=== PATIENT | male | born 1940 | race Caucasian/White ===

== ENCOUNTER 2016-12-19 06:43 | Day surgery (SDC) | payer OTHER ==
[~2016-12-19] VITALS: Ht 177.8 cm; Wt 74.8 kg
[~2016-12-19 06:43] MED LIST: ATO40T PO; GABA-497 PO; INSUINJ37 SUBCUT; LISI2.5T47 PO; METO25TA5 PO; PRA1C PO
[2016-12-19] MEDS ORDERED: MIDAZOLAM HCL 1MG/1ML-2 ML VIAL ONE (07:25)
[2016-12-19] MEDS ORDERED: fentaNYL CITRATE 100 MCG/2 ML VL ONE (07:26)
[2016-12-19] MEDS ORDERED: SODIUM CHL 0.9% 50 ML ONE (07:26)
[2016-12-19] MEDS ORDERED: ANGIOMAX 250 MG VIAL IV ONE (07:26)
[2016-12-19] MEDS ORDERED: HEPARIN IN NS 1000Units/500mL 1,500 ML ONE (07:33)
[2016-12-19] MEDS ORDERED: IODIXANOL 320MG/ML 100ML BTL IV ONE (07:33)
[2016-12-19] MEDS ORDERED: LIDOCAINE 2%HCL (LOCAL ANESTH.) INJ 20ML MDV ONE (07:33)
== END 2016-12-19 14:30 | disposition home or self-care (01) ==
LOC: CATH 06:43
PROVIDERS: ATTEND Internal Medicine
DX: I73.9 Peripheral vascular disease, unspecified (principal)
CPT/HCPCS: 37224; 82962; C1760; C1769; C1894; J0583; J1644; J2250; J3010; J7030; Q9967

== ENCOUNTER 2017-10-17 06:37 | Day surgery (SDC) | payer OTHER ==
[~2017-10-17] VITALS: Ht 177.8 cm; Wt 76.3 kg
[~2017-10-17 06:37] MED LIST changes: -ATO40T PO; +ATOR10TA PO; -GABA-497 PO; +GABA300C10 PO; -LISI2.5T47 PO; +ZOLP10TA6 PO
[2017-10-17] MEDS ORDERED: LIDOCAINE 2%HCL (LOCAL ANESTH.) INJ 20ML MDV ONE (07:21)
[2017-10-17] MEDS ORDERED: IOHEXOL 350 MG/ML 100ML IJ ONE (07:21)
[2017-10-17] MEDS ORDERED: IODIXANOL 320MG/ML 100ML BTL IV ONE (08:02)
[2017-10-17] MEDS ORDERED: SODIUM CHL 0.9% 0 ML ONE (08:09)
[2017-10-17] MEDS ORDERED: ANGIOMAX 250 MG VIAL IV ONE (08:09)
[2017-10-17] MEDS ORDERED: MIDAZOLAM HCL 1MG/1ML-2 ML VIAL ONE (08:09)
[2017-10-17] MEDS ORDERED: fentaNYL CITRATE 100 MCG/2 ML VL ONE (08:09)
[2017-10-17] MEDS ORDERED: VERAPAMIL 2.5MG/ML INJ 2ML VIAL IV ONE (08:11)
[2017-10-17] MEDS ORDERED: SODIUM CHL 0.9% 50 ML ONE (08:11)
[2017-10-17] MEDS ORDERED: HEPARIN SODIUM (PORCINE) 5000 UNITS/ML 1ML VIAL ONE (08:54)
[2017-11-20] MEDS ORDERED: ASPI81TA27 PO (11:37)
== END 2017-10-17 10:50 | disposition home or self-care (01) ==
LOC: CATH 06:37
PROVIDERS: ATTEND Internal Medicine
DX: I25.110 Atherosclerotic heart disease of native coronary artery with unstable angina pectoris (principal); I99.8 Other disorder of circulatory system; E66.9 Obesity, unspecified; I10 Essential (primary) hypertension; E78.5 Hyperlipidemia, unspecified; E11.9 Type 2 diabetes mellitus without complications; I73.9 Peripheral vascular disease, unspecified; Z79.899 Other long term (current) drug therapy; Z87.891 Personal history of nicotine dependence; Z79.4 Long term (current) use of insulin
CPT/HCPCS: 93005; 93458; C1769; C1894; J1644; J2250; J3010; J7030; Q9967; 99152

== ENCOUNTER 2017-11-22 06:43 | Inpatient (IN) | payer OTHER ==
[2017-11-21] MEDS: InsuLIN REG 1unit/0.01ml Soln (100units/ml) SC SCH (06:01)
[~2017-11-22] VITALS: Ht 177.8 cm; Wt 84.2 kg
[~2017-11-22 06:43] MED LIST changes: +ASPI81TA27 PO
[2017-11-22] MEDS ORDERED: IODIXANOL 320MG/ML 100ML BTL IV ONE ×2 (07:16→08:05)
[2017-11-22] MEDS ORDERED: LIDOCAINE 2% (LOCAL ANESTH.) PF 5ml SDV ONE (07:16)
[2017-11-22] MEDS ORDERED: fentaNYL CITRATE 100 MCG/2 ML VL ONE (08:03)
[2017-11-22] MEDS ORDERED: ANGIOMAX 250 MG VIAL IV ONE (08:03)
[2017-11-22] MEDS ORDERED: MIDAZOLAM HCL 1MG/1ML-2 ML VIAL ONE (08:04)
[2017-11-22] MEDS ORDERED: SODIUM CHL 0.9% 50 ML ONE ×2 (08:05→08:07)
[2017-11-22] MEDS ORDERED: VERAPAMIL 2.5MG/ML INJ 2ML VIAL IV ONE (08:58)
[2017-11-22] MEDS ORDERED: CLOPIDOGREL 300 MG TAB ONE (09:24)
[2017-11-22] MEDS ORDERED: SODIUM CHLORIDE 0.9% 1,000 ML IV SCH (10:19)
[2017-11-22] MEDS ORDERED: ACETAMINOPHEN 500 MG TAB PO PRN (10:30)
[2017-11-22] MEDS ORDERED: MORPHINE SULFATE 8mg/ml INJ SDV IV PRN (10:30)
[2017-11-22] MEDS ORDERED: HYDROcodone-ACET 5/325MG TAB PO PRN (10:30)
[2017-11-22] MEDS ORDERED: ONDANSETRON HCL 4 MG/2 ML VIAL IV PRN (10:30)
[2017-11-22] MEDS ORDERED: LORazepam 0.5 MG TAB PO PRN (10:30)
[2017-11-22] MEDS ORDERED: MILK OF MAGNESIA 30ML SUSP PO ONE (10:30)
[2017-11-22] MEDS ORDERED: ZOLPIDEM TARTRATE 5 MG TAB PO PRN ×3 (10:30→22:00)
[2017-11-22] MEDS ORDERED: DEXTROSE (50%) 50ML SYRG IV PRN (15:00)
[2017-11-22 15:30] VITALS: BP 119/49
[2017-11-22] MEDS ORDERED: LISI2.5T47 PO (16:27)
[2017-11-22] MEDS: ACCU-CHEK COMFORT CURVE STRIP VI SCH ×2 (16:49→22:02)
[2017-11-22] MEDS: InsuLIN REG 1unit/0.01ml Soln (100units/ml) SC SCH ×2 (16:50→22:00)
[2017-11-22 17:00] VITALS: BP 119/49
[2017-11-22 22:00] VITALS: BP 113/51
[2017-11-22] MEDS ORDERED: ATORVASTATIN 20 MG TAB PO SCH (22:00)
[2017-11-22] MEDS: METOPROLOL TARTRATE 25 MG TAB PO SCH (22:00)
[2017-11-23 05:11] VITALS: BP 102/49
[2017-11-23] MEDS: ACCU-CHEK COMFORT CURVE STRIP VI SCH (06:01)
[2017-11-23] MEDS ORDERED: INSULIN LANTUS (GLARGINE) 1 /0.01ml (100units/ml) SC SCH (07:00)
[2017-11-23 08:42] VITALS: BP 119/49
[2017-11-23] MEDS: METOPROLOL TARTRATE 25 MG TAB PO SCH (09:49)
[2017-11-23] MEDS ORDERED: PRAZOSIN HCL 1 MG CAP PO SCH (10:00)
[2017-11-23] MEDS ORDERED: GABAPENTIN 300 MG CAP PO SCH (10:00)
== END 2017-11-23 15:52 | disposition home or self-care (01) | DRG 272 ==
LOC: CATH 06:43 → TELE-CENTR 06:44 → CENTRAL 17:42
PROVIDERS: ADMIT Internal Medicine; ATTEND Internal Medicine
PROC: B41D1ZZ Fluoroscopy of Aorta and Bilateral Lower Extremity Arteries using Low Osmolar Contrast (ICD-10-PCS; principal; 2017-11-22)
PROC: 04CJ3ZZ Extirpation of Matter from Left External Iliac Artery, Percutaneous Approach (ICD-10-PCS; 2017-11-22)
PROC: 047J3DZ Dilation of Left External Iliac Artery with Intraluminal Device, Percutaneous Approach (ICD-10-PCS; 2017-11-22)
PROC: B44GZZ3 Ultrasonography of Left Lower Extremity Arteries, Intravascular (ICD-10-PCS; 2017-11-22)
DX: I70.202 Unspecified atherosclerosis of native arteries of extremities, left leg (principal); I10 Essential (primary) hypertension; E11.9 Type 2 diabetes mellitus without complications; E11.42 Type 2 diabetes mellitus with diabetic polyneuropathy; E11.51 Type 2 diabetes mellitus with diabetic peripheral angiopathy without gangrene; E78.00 Pure hypercholesterolemia, unspecified; E78.5 Hyperlipidemia, unspecified; I11.9 Hypertensive heart disease without heart failure; Z79.4 Long term (current) use of insulin; Z82.49 Family history of ischemic heart disease and other diseases of the circulatory system; Z79.899 Other long term (current) drug therapy; Z95.820 Peripheral vascular angioplasty status with implants and grafts
CPT/HCPCS: 0238T; 37221; 75716; 82962; 99152; 99153; J1815; J2250; Q9967

== ENCOUNTER → 2018-01-22 | Day surgery (SDC) | payer OTHER ==
[~2018-01-22] VITALS: Ht 177.8 cm; Wt 73.4 kg
[~2018-01-22] MED LIST changes: +CLOP75TA28 PO; +LISI2.5T47 PO; +PANT40TA2 PO
== END | disposition home or self-care (01) ==
LOC: CATH 06:54
PROVIDERS: ATTEND Internal Medicine
DX: I73.9 Peripheral vascular disease, unspecified (principal); Z53.8 Procedure and treatment not carried out for other reasons; E78.5 Hyperlipidemia, unspecified; I35.0 Nonrheumatic aortic (valve) stenosis; I10 Essential (primary) hypertension; I25.119 Atherosclerotic heart disease of native coronary artery with unspecified angina pectoris; Z82.49 Family history of ischemic heart disease and other diseases of the circulatory system; Z83.6 Family history of other diseases of the respiratory system; Z79.82 Long term (current) use of aspirin; Z79.891 Long term (current) use of opiate analgesic; Z79.899 Other long term (current) drug therapy; Z90.49 Acquired absence of other specified parts of digestive tract; Z87.891 Personal history of nicotine dependence

== ENCOUNTER 2018-01-28 03:13 | Inpatient (IN) | payer OTHER ==
[~2018-01-28] VITALS: Ht 177.8 cm; Wt 74.3 kg
[2018-01-28] VITALS (9 sets, daily range): BP systolic 108–139; BP diastolic 50–76
[~2018-01-28 03:13] MED LIST changes: -PANT40TA2 PO
[2018-01-28 04:17] LABS: Basophils # (auto) 0 uL; Basophils % (auto) 0.4 % (0.0-2.0); Eosinophils # (auto) 0.2 uL; Eosinophils % (auto) 2.7 % (0.0-7.0); Hematocrit 25.3 % (41.0-53.0); Hemoglobin 8.7 g/dL (13.5-17.5); Lymphocytes # (auto) 0.8 uL; Lymphocytes % (auto) 10.4 % (10.0-50.0); Mean Corpuscular Hemoglobin 33.6 pg (28.0-32.0); Mean Corpuscular Hgb Conc. 34.4 g/dL (32.0-36.0); Mean Corpuscular Volume 97.6 fL (80.0-100.0); Monocytes # (auto) 0.5 uL; Monocytes % (auto) 5.8 % (0.0-12.0); Neutrophils # (auto) 6.3 uL; Neutrophils % (auto) 80.7 % (37.0-80.0); Platelet Count (auto) 144 10^3/uL (140-450); Red Blood Cells 2.59 10^6/uL (4.5-5.90); Red Cell Distribution Width 13.3 % (11.8-14.3); White Blood Cell 7.9 10^3/uL (4.4-10.8)
[2018-01-28 04:28] LABS: Alanine Aminotransferase 18 U/L (16-61); Albumin 2.9 g/dL (3.4-5.0); Anion Gap 9 (5-15); Aspartate Aminotransferase 8 U/L (15-37); Blood Urea Nitrogen 52 mg/dL (7-18); Calcium 7.8 mg/dL (8.5-10.1); Carbon Dioxide 23 mmol/L (21-32); Chloride 112 mmol/L (98-107); GFR African American 81 mL/min; GFR Non-African American 67 mL/min; Glucose 198 mg/dL (74-106); Potassium 4.5 mmol/L (3.5-5.1); Sodium 144 mmol/L (136-145)
[2018-01-28 04:31] LABS: INR 1.04 (0.9-1.15); Partial Thromboplastin Time 23.3 sec (23.78-33.04); Prothrombin Time 11.1 sec (9.27-12.13)
[2018-01-28 04:36] LABS: Alkaline Phosphatase 56 U/L (45-117); Bilirubin, Total 0.3 mg/dL (0.2-1.0); Total Protein 5.5 g/dL (6.4-8.2)
[2018-01-28] MEDS ORDERED: SODIUM CHLORIDE 0.9% 2,300 ML IV ONE (04:45)
[2018-01-28] MEDS ORDERED: SODIUM CHLORIDE 0.9% 1,000 ML IV ONE (05:00)
[2018-01-28] MEDS ORDERED: PANTOPRAZOLE 40 MG/10 ML VIAL IV ONE ×2 (05:15→06:04)
[2018-01-28] MEDS ORDERED: ONDANSETRON HCL 4 MG/2 ML VIAL IV PRN (05:30)
[2018-01-28] MEDS ORDERED: PANTOPRAZOLE 80 MG in SODIUM CHL 0.9% 60 ML IV SCH (05:30)
[2018-01-28] MEDS ORDERED: MORPHINE SULF INJ 2 MG/ML SYRINGE 1ML IV PRN (05:30)
[2018-01-28] MEDS ORDERED: NITROGLYCERIN 0.4 MG SL TAB SL PRN (05:30)
[2018-01-28] MEDS ORDERED: DEXTROSE (50%) 50ML SYRG IV PRN (05:30)
[2018-01-28] MEDS: ACCU-CHEK COMFORT CURVE STRIP VI SCH ×3 (06:06→18:18)
[2018-01-28] MEDS: InsuLIN REG 1unit/0.01ml Soln (100units/ml) SC SCH ×3 (06:06→18:00)
[2018-01-28] MEDS: SODIUM CHLORIDE 0.9% 1,000 ML IV SCH ×2 (06:07→17:18)
[2018-01-28 07:48] LABS: Hemoglobin 7.7 g/dL (13.5-17.5)
[2018-01-28] MEDS ORDERED: FLUMAZENIL 0.1 MG/ML INJ 10ML MDV IV ONE (13:48)
[2018-01-28] MEDS ORDERED: SODIUM CHLORIDE LOCK 10 ML ONE (13:49)
[2018-01-28] MEDS ORDERED: LIDOCAINE VISCOUS 2% 15ML UD ONE (13:49)
[2018-01-28] MEDS: fentaNYL CITRATE 100 MCG/2 ML VL ONE ×2 (14:05→14:08)
[2018-01-28] MEDS: MIDAZOLAM HCL 5 MG/ML-1ML VIAL ONE ×2 (14:05→14:08)
[2018-01-28] MEDS: PANTOPRAZOLE 40 MG/10 ML VIAL IV SCH (22:18)
[2018-01-29] MEDS: ACCU-CHEK COMFORT CURVE STRIP VI SCH ×3 (00:11→12:27)
[2018-01-29 01:50] VITALS: BP 131/60
[2018-01-29] MEDS: SODIUM CHLORIDE 0.9% 1,000 ML IV SCH ×2 (05:02→09:58)
[2018-01-29 05:51] VITALS: BP 125/68
[2018-01-29] MEDS: InsuLIN REG 1unit/0.01ml Soln (100units/ml) SC SCH ×3 (06:00→12:00)
[2018-01-29 07:02] LABS: Basophils # (auto) 0 uL; Basophils % (auto) 0.5 % (0.0-2.0); Eosinophils # (auto) 0.2 uL; Eosinophils % (auto) 4.3 % (0.0-7.0); Hematocrit 25.6 % (41.0-53.0); Lymphocytes # (auto) 0.8 uL; Lymphocytes % (auto) 14.7 % (10.0-50.0); Mean Corpuscular Hemoglobin 33.1 pg (28.0-32.0); Mean Corpuscular Volume 94.6 fL (80.0-100.0); Monocytes # (auto) 0.4 uL; Monocytes % (auto) 6.9 % (0.0-12.0); Neutrophils # (auto) 4.2 uL; Neutrophils % (auto) 73.6 % (37.0-80.0); Platelet Count (auto) 109 10^3/uL (140-450); Red Blood Cells 2.71 10^6/uL (4.5-5.90); Red Cell Distribution Width 14.4 % (11.8-14.3); White Blood Cell 5.6 10^3/uL (4.4-10.8)
[2018-01-29 07:14] LABS: BUN/Creatinine Ratio 26.7; Calcium 7.6 mg/dL (8.5-10.1); Potassium 3.8 mmol/L (3.5-5.1)
[2018-01-29 08:30] VITALS: BP 125/59
[2018-01-29] MEDS: PANTOPRAZOLE 40 MG/10 ML VIAL IV SCH (09:53)
[2018-01-29] MEDS ORDERED: PANT40TA2 PO (11:23)
[2018-01-29 12:30] VITALS: BP 130/65
[2018-01-29 13:45] VITALS: BP 130/65
== END 2018-01-29 16:10 | disposition home or self-care (01) | DRG 378 ==
LOC: ER 03:15 → TELE 03:16 → TELE-WESTW 20:23
PROVIDERS: ADMIT Nurse Practitioner; ATTEND Hospitalist
PROC: 30233N1 Transfusion of Nonautologous Red Blood Cells into Peripheral Vein, Percutaneous Approach (ICD-10-PCS; 2018-01-28)
PROC: 0DJ08ZZ Inspection of Upper Intestinal Tract, Via Natural or Artificial Opening Endoscopic (ICD-10-PCS; principal; 2018-01-28 14:02)
DX: K25.4 Chronic or unspecified gastric ulcer with hemorrhage (principal); D62 Acute posthemorrhagic anemia; K29.71 Gastritis, unspecified, with bleeding; K29.81 Duodenitis with bleeding; K44.9 Diaphragmatic hernia without obstruction or gangrene; E11.51 Type 2 diabetes mellitus with diabetic peripheral angiopathy without gangrene; E78.00 Pure hypercholesterolemia, unspecified; I10 Essential (primary) hypertension; I95.9 Hypotension, unspecified; N28.1 Cyst of kidney, acquired; I25.10 Atherosclerotic heart disease of native coronary artery without angina pectoris; N40.0 Benign prostatic hyperplasia without lower urinary tract symptoms; K76.89 Other specified diseases of liver; K57.30 Diverticulosis of large intestine without perforation or abscess without bleeding; Z82.49 Family history of ischemic heart disease and other diseases of the circulatory system; Z79.82 Long term (current) use of aspirin; Z79.899 Other long term (current) drug therapy; Z83.6 Family history of other diseases of the respiratory system; Z95.5 Presence of coronary angioplasty implant and graft
CPT/HCPCS: 36415; 36430; 43235; 71045; 74176; 80048; 80053; 82270; 82962; 83735; 83880; 84484; 85014; 85018; 85025; 85610; 85730; 86850; 86900; 86901; 86920; 87081; 93005; 96361; 96365; 96366; 96375; 99291; A6257; C9113; J1815; J2250

== ENCOUNTER 2019-01-11 14:34 | Emergency (ER) | payer OTHER ==
[~2019-01-11] VITALS: Ht 177.8 cm; Wt 72.6 kg
[~2019-01-11 14:34] MED LIST changes: -ASPI81TA27 PO; -CLOP75TA28 PO; -GABA300C10 PO; +PANT40TA2 PO; -PRA1C PO
[2019-01-11 15:41] VITALS: BP 135/77
[2019-01-11] MEDS ORDERED: traMADol HCL 50 MG TAB PO ONE (16:45)
[2019-01-11] MEDS ORDERED: KETOROLAC TROMETH 15 mg/ml 1ML VL IM ONE (16:45)
== END 2019-01-11 17:14 | disposition home or self-care (01) ==
LOC: ER 14:36
DX: M77.9 Enthesopathy, unspecified (principal); E11.9 Type 2 diabetes mellitus without complications; E78.5 Hyperlipidemia, unspecified; I10 Essential (primary) hypertension; Z79.4 Long term (current) use of insulin; Z79.899 Other long term (current) drug therapy
CPT/HCPCS: 29125; 73110; 96372; 99283; J1885

== ENCOUNTER 2019-12-22 12:24 | Inpatient (IN) | payer OTHER ==
[~2019-12-22] VITALS: Ht 177.8 cm; Wt 69.4 kg
[2019-12-22] MEDS ORDERED: SODIUM CHLORIDE 0.9% 1,000 ML IVB ONE (12:38)
[2019-12-22] MEDS ORDERED: MORPHINE SULF INJ 2 MG/ML SYRINGE 1ML IV ONE (12:45)
[2019-12-22] MEDS ORDERED: ONDANSETRON HCL 4 MG/2 ML VIAL IV ONE (12:45)
[2019-12-22] MEDS ORDERED: ASPirin 81 mg TAB PO ONE (12:45)
[2019-12-22] MEDS ORDERED: dilTIAZem 25 MG/5 ML VIAL IV ONE (12:45)
[2019-12-22 13:19] LABS: Basophils # (auto) 0 10 ^3/uL (0-0.2); Basophils % (auto) 0.8 % (0.0-2.0); Eosinophils # (auto) 0.2 10 ^3/uL (0-0.8); Hematocrit 31.7 % (41.0-53.0); Hemoglobin 10.2 g/dL (13.5-17.5); Lymphocytes # (auto) 0.8 10 ^3/uL (0.4-5.4); Lymphocytes % (auto) 18.1 % (10.0-50.0); Mean Corpuscular Hemoglobin 27.3 pg (28.0-32.0); Mean Corpuscular Hgb Conc. 32.1 g/dL (32.0-36.0); Monocytes # (auto) 0.4 10 ^3/uL (0-1.3); Monocytes % (auto) 9.6 % (0.0-12.0); Neutrophils # (auto) 2.9 10 ^3/uL (1.6-8.6); Neutrophils % (auto) 67.5 % (37.0-80.0); Platelet Count (auto) 200 10^3/uL (140-450); Red Blood Cells 3.73 10^6/uL (4.5-5.90); Red Cell Distribution Width 18.6 % (11.8-14.3); White Blood Cell 4.3 10^3/uL (4.4-10.8)
[2019-12-22] MEDS ORDERED: NITROGLYCERIN 0.4 MG SL TAB SL PRN (13:45)
[2019-12-22] MEDS ORDERED: MORPHINE SULF INJ 2 MG/ML SYRINGE 1ML IV PRN ×2 (13:45)
[2019-12-22] MEDS ORDERED: ACETAMINOPHEN 325 MG TAB PO PRN (13:45)
[2019-12-22] MEDS: SODIUM CHLORIDE 0.9% 1,000 ML IV SCH ×2 (13:45→23:10)
[2019-12-22] MEDS ORDERED: ONDANSETRON HCL 4 MG/2 ML VIAL IV PRN (13:45)
[2019-12-22 13:49] LABS: Albumin 3.4 g/dL (3.4-5.0); Anion Gap 8 (5-15); Blood Urea Nitrogen 21 mg/dL (7-18); Calcium 8.7 mg/dL (8.5-10.1); Carbon Dioxide 23 mmol/L (21-32); Chloride 109 mmol/L (98-107); Glucose 149 mg/dL (74-106); Sodium 140 mmol/L (136-145)
[2019-12-22 13:51] LABS: Alanine Aminotransferase 20 U/L (16-61); Aspartate Aminotransferase 18 U/L (15-37); BUN/Creatinine Ratio 18.6; GFR African American 80 mL/min; GFR Non-African American 66 mL/min
[2019-12-22 13:56] LABS: Alkaline Phosphatase 116 U/L (45-117); Bilirubin, Total 0.4 mg/dL (0.2-1.0); Total Protein 7.2 g/dL (6.4-8.2)
[2019-12-22 16:28] LABS: Urine WBC None Seen /hpf (0 - 3)
[2019-12-22 16:58] LABS: Urine Bacteria NONE SEEN /hpf (None Seen); Urine Blood Negative /uL (Negative); Urine Specific Gravity 1.011 (1.001-1.035)
[2019-12-22] MEDS ORDERED: NAP500T PO (18:12)
[2019-12-22] MEDS ORDERED: ATOR1TAB PO (18:12)
[2019-12-22] MEDS ORDERED: ASPI-266 PO (18:13)
[2019-12-22] MEDS ORDERED: ACET-1080 PO (18:13)
[2019-12-22] MEDS ORDERED: NITR0.4S29 SL (18:14)
[2019-12-22] MEDS ORDERED: TRAM50TA2 PO (18:16)
[2019-12-22] MEDS: METOPROLOL TARTRATE 25 MG TAB PO SCH (21:29)
[2019-12-22] MEDS: ENOXAPARIN SOD 80 MG/0.8ML SYRINGE SC SCH (21:32)
[2019-12-22] MEDS: DRONEDARONE HCL 400 MG TAB PO SCH (23:09)
[2019-12-23 07:52] LABS: Basophils # (auto) 0 10 ^3/uL (0-0.2); Basophils % (auto) 0.6 % (0.0-2.0); Eosinophils # (auto) 0.2 10 ^3/uL (0-0.8); Eosinophils % (auto) 4.7 % (0.0-7.0); Hematocrit 28.3 % (41.0-53.0); Lymphocytes # (auto) 0.8 10 ^3/uL (0.4-5.4); Lymphocytes % (auto) 17.8 % (10.0-50.0); Mean Corpuscular Hemoglobin 27.5 pg (28.0-32.0); Mean Corpuscular Hgb Conc. 31.8 g/dL (32.0-36.0); Mean Corpuscular Volume 86.5 fL (80.0-100.0); Monocytes # (auto) 0.4 10 ^3/uL (0-1.3); Monocytes % (auto) 8.7 % (0.0-12.0); Neutrophils % (auto) 68.2 % (37.0-80.0); Nucleated Red Blood Cells % 0.1 %; Platelet Count (auto) 165 10^3/uL (140-450); Red Blood Cells 3.27 10^6/uL (4.5-5.90); Red Cell Distribution Width 18.9 % (11.8-14.3); White Blood Cell 4.4 10^3/uL (4.4-10.8)
[2019-12-23 08:18] LABS: Albumin 2.9 g/dL (3.4-5.0); BUN/Creatinine Ratio 16.4; Calcium 8.1 mg/dL (8.5-10.1); Magnesium 2.1 mg/dL (1.6-2.6); Potassium 4.3 mmol/L (3.5-5.1)
[2019-12-23 08:27] LABS: Bilirubin, Total 0.4 mg/dL (0.2-1.0); Total Protein 6.2 g/dL (6.4-8.2)
--- NOTE | 2019-12-23 08:37 | NUR ---
Telemetry admit from ER LIYASARA admitted to Telemetry unit after SBAR received. Patient oriented to VARUN CUELLAR RN primary RN, [facility] unit, room 290, bed A, and unit policies regarding patient care and visiting hours. Patient now on continuous telemetry monitoring, tele box #[id number]. Patient weighed by bedscale and encouraged to call if they need something. All questions and concerns addressed, patient verbalized understanding.
[2019-12-23] MEDS: SODIUM CHLORIDE 0.9% 1,000 ML IV SCH (09:56)
[2019-12-23] MEDS: DRONEDARONE HCL 400 MG TAB PO SCH (09:58)
[2019-12-23] MEDS: ENOXAPARIN SOD 80 MG/0.8ML SYRINGE SC SCH (09:58)
[2019-12-23] MEDS: METOPROLOL TARTRATE 25 MG TAB PO SCH (09:58)
[2019-12-23] MEDS ORDERED: AZITHROMYCIN 500MG/ 250ML 250 ML IV SCH (10:00)
[2019-12-23 10:09] VITALS: BP 126/57
[2019-12-23] MEDS ORDERED: ATO40T PO (10:18)
[2019-12-23] MEDS ORDERED: METO25TA93 PO (10:18)
[2019-12-23 10:20] VITALS: BP 126/57
[2019-12-23 12:50] VITALS: BP 108/60
--- NOTE | 2019-12-23 14:56 | NUR ---
Paged Dr. Berg regarding increased trop. Awaiting a call back.
[2019-12-23] MEDS ORDERED: INSULIN LANTUS (GLARGINE) 1 /0.01ml (100units/ml) SC ONE (15:00)
--- NOTE | 2019-12-23 16:29 | NUR ---
Dr Treviño at bedside. New orders received. Dr put a DC order in, but patient is still waiting for cardio clearance from [facility]. Last trops went up to 2.940, [facility] was called, waiting for call back. Dr Tang will see the patient tomorrow if they are still here. Per Hudson "DC does not need to be held for the pulmonary consult because patient does not show any signs of pneumonia".
--- NOTE | 2019-12-23 16:47 | NUR ---
Dr Berg at bedside. New orders received. Per Otis "if trop is below 4, patient can be discharged home". Trop ordered.
[2019-12-23 16:58] VITALS: BP 148/107
[2019-12-23 17:35] VITALS: BP 108/60
--- NOTE | 2019-12-23 19:24 | NUR ---
Trop 1.970. Patient discharging.
[2019-12-24] MEDS ORDERED: INSULIN LANTUS (GLARGINE) 1 /0.01ml (100units/ml) SC SCH (10:00)
== END 2019-12-23 19:50 | disposition home or self-care (01) | DRG 281 ==
LOC: ER 12:24 → TELE 12:25 → TELE-WESTW 12-23 08:41
PROVIDERS: ADMIT Internal Medicine; ATTEND Internal Medicine
DX: I21.4 Non-ST elevation (NSTEMI) myocardial infarction (principal); I48.20 Chronic atrial fibrillation, unspecified; E11.51 Type 2 diabetes mellitus with diabetic peripheral angiopathy without gangrene; E78.5 Hyperlipidemia, unspecified; I11.0 Hypertensive heart disease with heart failure; I25.10 Atherosclerotic heart disease of native coronary artery without angina pectoris; I50.9 Heart failure, unspecified; Z20.828 Contact with and (suspected) exposure to other viral communicable diseases; Z82.49 Family history of ischemic heart disease and other diseases of the circulatory system; Z95.820 Peripheral vascular angioplasty status with implants and grafts; Z95.5 Presence of coronary angioplasty implant and graft; Z79.4 Long term (current) use of insulin; Z90.49 Acquired absence of other specified parts of digestive tract; J44.9 Chronic obstructive pulmonary disease, unspecified
CPT/HCPCS: 36415; 71045; 80053; 81001; 82962; 83735; 83880; 84484; 85025; 93005; 99291; G0378; J2405

== ENCOUNTER 2020-08-31 06:36 | Day surgery (SDC) | payer OTHER ==
[~2020-08-31] VITALS: Ht 177.8 cm; Wt 70.8 kg
[~2020-08-31 06:36] MED LIST changes: +ACET-1080 PO; +ASPI1TAB19 PO; +ATOR-47 PO; -ATOR10TA PO; +CARB0.5D8 EACHEYE; +NITR0.4S29 SL; -PANT40TA2 PO; +RANO500T2 PO
[2020-08-31] MEDS ORDERED: IOHEXOL 350 MG/ML 100ML IJ ONE (07:36)
[2020-08-31] MEDS ORDERED: LIDOCAINE 2%HCL (LOCAL ANESTH.) INJ 20ML MDV ONE (07:36)
[2020-08-31] MEDS ORDERED: HEPARIN IN NS 1000Units/500mL 1,500 ML ONE (07:36)
[2020-08-31] MEDS ORDERED: fentaNYL CITRATE 100 MCG/2 ML VL IV ONE (08:00)
[2020-08-31] MEDS ORDERED: LIDOCAINE VISCOUS 2% 15ML UD PO ONE (08:00)
[2020-08-31] MEDS ORDERED: diphenhdrAMINE HCL 50 MG/1 ML VL IV ONE (08:00)
[2020-08-31] MEDS ORDERED: MIDAZOLAM HCL 5 MG/ML-1ML VIAL IV ONE (08:00)
[2020-08-31] MEDS ORDERED: MIDAZOLAM HCL 1MG/1ML-2 ML VIAL ONE (08:04)
[2020-08-31] MEDS ORDERED: ANGIOMAX 250 MG VIAL IV ONE (09:03)
[2020-08-31] MEDS ORDERED: SODIUM CHL 0.9% 0 ML ONE (09:03)
[2020-08-31] MEDS ORDERED: IODIXANOL 320MG/ML 100ML BTL IV ONE (09:09)
[2020-08-31] MEDS ORDERED: HEPARIN SODIUM (PORCINE) 5000 UNITS/ML 1ML VIAL ONE (09:19)
[2020-08-31] MEDS ORDERED: VERAPAMIL 2.5MG/ML INJ 2ML VIAL IV ONE (09:19)
[2020-08-31] MEDS ORDERED: HYDROcodone-ACET 5/325MG TAB PO PRN (09:45)
[2020-08-31] MEDS ORDERED: ACETAMINOPHEN 500 MG TAB PO PRN (09:45)
== END 2020-08-31 11:45 | disposition home or self-care (01) ==
LOC: CATH 06:36
PROVIDERS: ATTEND Internal Medicine
DX: I25.119 Atherosclerotic heart disease of native coronary artery with unspecified angina pectoris (principal); I25.82 Chronic total occlusion of coronary artery; I49.3 Ventricular premature depolarization; I08.3 Combined rheumatic disorders of mitral, aortic and tricuspid valves; I10 Essential (primary) hypertension; E78.5 Hyperlipidemia, unspecified; I73.9 Peripheral vascular disease, unspecified; M19.90 Unspecified osteoarthritis, unspecified site; Z95.2 Presence of prosthetic heart valve; Z87.891 Personal history of nicotine dependence; Z79.02 Long term (current) use of antithrombotics/antiplatelets; Z20.822 Contact with and (suspected) exposure to COVID-19; Z79.82 Long term (current) use of aspirin; Z95.5 Presence of coronary angioplasty implant and graft; Z82.49 Family history of ischemic heart disease and other diseases of the circulatory system; Z79.899 Other long term (current) drug therapy
CPT/HCPCS: 93312; 93454; C1769; C1887; C1894; J1644; J2250; J3010; J7030; Q9967; U0003; 99152

== ENCOUNTER 2021-03-19 13:33 | Emergency (ER) | payer OTHER ==
[~2021-03-19] VITALS: Ht 177.8 cm; Wt 71.7 kg
[2021-03-19 13:49] VITALS: BP 143/74
[2021-03-19] MEDS ORDERED: TETANUS-DIPTH-ACEL PERTUSSIS 0.5ML SYR Tdap IM ONE (14:11)
== END 2021-03-19 14:36 | disposition home or self-care (01) ==
LOC: ER 13:33
DX: S60.455A Superficial foreign body of left ring finger, initial encounter (principal); I11.0 Hypertensive heart disease with heart failure; I50.9 Heart failure, unspecified; I48.91 Unspecified atrial fibrillation; E11.9 Type 2 diabetes mellitus without complications; E78.5 Hyperlipidemia, unspecified; Z90.49 Acquired absence of other specified parts of digestive tract; Z79.4 Long term (current) use of insulin; Z79.82 Long term (current) use of aspirin; Z79.899 Other long term (current) drug therapy; W22.8XXA Striking against or struck by other objects, initial encounter; Y93.89 Activity, other specified; Y92.89 Other specified places as the place of occurrence of the external cause; Y99.8 Other external cause status
CPT/HCPCS: 90471; 90715

== ENCOUNTER 2021-05-12 12:57 | Inpatient (IN) | payer OTHER ==
[~2021-05-12] VITALS: Ht 177.8 cm; Wt 70.0 kg
[2021-05-12 16:05] LABS: Basophils # (auto) 0 10 ^3/uL (0-0.2); Eosinophils # (auto) 0.4 10 ^3/uL (0-0.8); Eosinophils % (auto) 9.4 % (0.0-7.0); Hematocrit 38.7 % (41.0-53.0); Hemoglobin 12.9 g/dL (13.5-17.5); Lymphocytes # (auto) 0.8 10 ^3/uL (0.4-5.4); Lymphocytes % (auto) 18.3 % (10.0-50.0); Mean Corpuscular Hemoglobin 32.2 pg (28.0-32.0); Mean Corpuscular Hgb Conc. 33.2 g/dL (32.0-36.0); Mean Corpuscular Volume 96.9 fL (80.0-100.0); Monocytes # (auto) 0.4 10 ^3/uL (0-1.3); Monocytes % (auto) 9.4 % (0.0-12.0); Neutrophils # (auto) 2.9 10 ^3/uL (1.6-8.6); Neutrophils % (auto) 61.9 % (37.0-80.0); Red Blood Cells 3.99 10^6/uL (4.5-5.90); Red Cell Distribution Width 13.7 % (11.8-14.3); White Blood Cell 4.6 10^3/uL (4.4-10.8)
[2021-05-12 16:13] LABS: Albumin 3.9 g/dL (3.4-5.0); Calcium 8.5 mg/dL (8.5-10.1); Potassium 4.6 mmol/L (3.5-5.1)
[2021-05-12 16:17] LABS: BUN/Creatinine Ratio 14.9; Bilirubin, Total 0.5 mg/dL (0.2-1.0); Total Protein 6.8 g/dL (6.4-8.2)
[2021-05-12] MEDS ORDERED: DEXTROSE (50%) 50ML SYRG IV PRN (22:15)
[2021-05-12] MEDS ORDERED: MORPHINE SULFATE INJECTION 2 MG/ML SYRG IV PRN (22:15)
[2021-05-12] MEDS ORDERED: ACETAMINOPHEN 325 MG TAB PO PRN (22:15)
[2021-05-12] MEDS ORDERED: ONDANSETRON HCL 4 MG/2 ML VIAL IV PRN (22:15)
[2021-05-12] MEDS ORDERED: NITROGLYCERIN 0.4 MG SL TAB SL PRN (22:15)
[2021-05-12] MEDS ORDERED: HYDROcodone-ACET 5/325MG TAB PO PRN (22:15)
[2021-05-12] MEDS ORDERED: DOCUSATE SOD 100 MG CAP PO PRN (22:15)
[2021-05-13] VITALS (7 sets, daily range): BP systolic 120–145; BP diastolic 60–71
[2021-05-13] MEDS: SODIUM CHLOR 0.9% PF (SALINE LOCK) 10ML VIAL/SYR IV SCH ×3 (06:22→22:00)
[2021-05-13] MEDS: InsuLIN REG 1unit/0.01ml Soln (100units/ml) SC SCH ×3 (06:22→17:52)
[2021-05-13] MEDS: ACCU-CHEK COMFORT CURVE STRIP VI SCH ×4 (06:23→22:00)
[2021-05-13 06:34] LABS: Basophils # (auto) 0 10 ^3/uL (0-0.2); Basophils % (auto) 0.8 % (0.0-2.0); Eosinophils # (auto) 0.5 10 ^3/uL (0-0.8); Eosinophils % (auto) 9.6 % (0.0-7.0); Hematocrit 39.6 % (41.0-53.0); Hemoglobin 13.3 g/dL (13.5-17.5); Lymphocytes % (auto) 21.6 % (10.0-50.0); Mean Corpuscular Hemoglobin 32.5 pg (28.0-32.0); Mean Corpuscular Hgb Conc. 33.5 g/dL (32.0-36.0); Mean Corpuscular Volume 97.1 fL (80.0-100.0); Monocytes # (auto) 0.4 10 ^3/uL (0-1.3); Neutrophils # (auto) 2.8 10 ^3/uL (1.6-8.6); Nucleated Red Blood Cells % 0.1 %; Red Blood Cells 4.08 10^6/uL (4.5-5.90); Red Cell Distribution Width 13.5 % (11.8-14.3); White Blood Cell 4.7 10^3/uL (4.4-10.8)
[2021-05-13 06:53] LABS: INR 1.03 (0.9-1.15)
[2021-05-13 07:16] LABS: Albumin 3.5 g/dL (3.4-5.0); Calcium 8.3 mg/dL (8.5-10.1); Potassium 4.3 mmol/L (3.5-5.1)
[2021-05-13 07:24] LABS: BUN/Creatinine Ratio 15.4; Bilirubin, Total 0.5 mg/dL (0.2-1.0); Total Protein 6.6 g/dL (6.4-8.2)
[2021-05-13] MEDS ORDERED: ASCORBIC ACID 500 MG TAB PO SCH (10:00)
[2021-05-13] MEDS ORDERED: ZINC SULFATE 220mg CAP or TAB PO SCH (10:00)
[2021-05-13] MEDS: FAMOTIDINE (10MG/ML) 2ML VL IV SCH (10:05)
[2021-05-13] MEDS: ASPirin 81 mg TAB PO SCH (10:05)
[2021-05-13] MEDS: MULTIPLE VITAMIN TAB PO SCH (10:06)
[2021-05-13] MEDS: HEPARIN SODIUM (PORCINE) 5000 UNITS/ML 1ML VIAL SC SCH ×2 (10:06→22:54)
[2021-05-13 15:22] LABS: CRP High Sensitivity 0.15 mg/dL (< 0.3)
[2021-05-13] MEDS ORDERED: InsuLIN REG 1unit/0.01ml Soln (100units/ml) SC SCH (22:00)
[2021-05-13] MEDS ORDERED: ATORVASTATIN 20 MG TAB PO SCH (22:00)
[2021-05-14 05:18] VITALS: BP 133/66
[2021-05-14] MEDS: SODIUM CHLOR 0.9% PF (SALINE LOCK) 10ML VIAL/SYR IV SCH ×2 (06:00→14:04)
[2021-05-14] MEDS: ACCU-CHEK COMFORT CURVE STRIP VI SCH ×2 (06:35→11:56)
[2021-05-14] MEDS: InsuLIN REG 1unit/0.01ml Soln (100units/ml) SC SCH ×2 (06:35→11:57)
[2021-05-14 08:26] VITALS: BP 125/59
[2021-05-14] MEDS: FAMOTIDINE (10MG/ML) 2ML VL IV SCH (09:20)
[2021-05-14] MEDS: MULTIPLE VITAMIN TAB PO SCH (09:20)
[2021-05-14] MEDS: ASPirin 81 mg TAB PO SCH (09:20)
[2021-05-14] MEDS: HEPARIN SODIUM (PORCINE) 5000 UNITS/ML 1ML VIAL SC SCH (09:21)
[2021-05-14] MEDS ORDERED: CLOPIDOGREL BISULFATE 75 MG TAB PO SCH (10:00)
[2021-05-14 12:49] VITALS: BP 150/69
[2021-05-14] MEDS ORDERED: CILO100T PO (15:32)
[2021-05-14 15:54] VITALS: BP 130/76
[2021-05-14 16:49] VITALS: BP 137/51
== END 2021-05-14 16:20 | disposition home or self-care (01) | DRG 300 ==
LOC: ER 12:57 → TELE 22:07 → TELE-WESTW 23:15
PROVIDERS: ADMIT Nurse Practitioner Family; ATTEND Hospitalist
DX: E11.51 Type 2 diabetes mellitus with diabetic peripheral angiopathy without gangrene (principal); I50.32 Chronic diastolic (congestive) heart failure; I70.211 Atherosclerosis of native arteries of extremities with intermittent claudication, right leg; I48.91 Unspecified atrial fibrillation; Z20.822 Contact with and (suspected) exposure to COVID-19; I11.0 Hypertensive heart disease with heart failure; Z90.49 Acquired absence of other specified parts of digestive tract
CPT/HCPCS: 36415; 73718; 80053; 80061; 82962; 83036; 83880; 84484; 85025; 85610; 85652; 85730; 86141; 87426; 93005; 93306; 93925; G0378; J1815; J3490

== ENCOUNTER 2022-09-07 21:30 | Inpatient (IN) | payer OTHER ==
[~2022-09-07] VITALS: Ht 177.8 cm; Wt 64.3 kg
[~2022-09-07 21:30] MED LIST changes: +CILO100T PO
[2022-09-07 22:00] LABS: Basophils # (auto) 0 10 ^3/uL (0-0.2); Basophils % (auto) 0.5 % (0.0-2.0); Eosinophils # (auto) 0.2 10 ^3/uL (0-0.8); Lymphocytes # (auto) 0.7 10 ^3/uL (0.4-5.4); Mean Corpuscular Hemoglobin 31.6 pg (28.0-32.0); Monocytes # (auto) 0.4 10 ^3/uL (0-1.3); White Blood Cell 6.4 10^3/uL (4.4-10.8)
[2022-09-07 22:02] LABS: Eosinophils % (auto) 2.6 % (0.0-7.0); Lymphocytes % (auto) 11.4 % (10.0-50.0); Mean Corpuscular Volume 98.9 fL (80.0-100.0); Monocytes % (auto) 6.1 % (0.0-12.0); Neutrophils % (auto) 79.4 % (37.0-80.0); Nucleated Red Blood Cells % 0.1 %; Red Blood Cells 1.72 10^6/uL (4.5-5.90); Red Cell Distribution Width 18.1 % (11.8-14.3)
[2022-09-07 22:18] LABS: Albumin 2.6 g/dL (3.4-5.0); BUN/Creatinine Ratio 23.5 (10.0-20.0); Magnesium 2.2 mg/dL (1.6-2.6); Potassium 4.3 mmol/L (3.5-5.1)
[2022-09-07 22:21] LABS: Bilirubin, Total 0.2 mg/dL (0.2-1.0); INR 1.02 (0.9-1.15); Partial Thromboplastin Time 21.2 sec (24.6-33.4); Total Protein 5.9 g/dL (6.4-8.2)
[2022-09-07 22:35] LABS: Hemoglobin 5.4 g/dL (13.5-17.5)
[2022-09-08] MEDS ORDERED: ONDANSETRON HCL 4 MG/2 ML VIAL IV ONE (00:15)
[2022-09-08] MEDS ORDERED: MORPHINE SULFATE 4 MG/ML SYR/VIAL IV ONE (00:15)
[2022-09-08 01:05] VITALS: BP 122/51
[2022-09-08 01:06] LABS: Urine Bacteria NONE SEEN /hpf (None Seen); Urine Blood Negative /uL (Negative); Urine Specific Gravity 1.025 (1.001-1.035); Urine WBC 2 /hpf (0 - 3)
[2022-09-08 01:20] VITALS: BP 117/48
[2022-09-08] MEDS ORDERED: ONDANSETRON HCL 4 MG/2 ML VIAL IV PRN (02:00)
[2022-09-08] MEDS ORDERED: NITROGLYCERIN 0.4 MG SL TAB SL PRN (02:00)
[2022-09-08] MEDS ORDERED: DOCUSATE SOD 100 MG CAP PO PRN (02:00)
[2022-09-08] MEDS ORDERED: ACETAMINOPHEN 325 MG TAB PO PRN (02:00)
[2022-09-08] MEDS ORDERED: HYDROcodone-ACET 5/325MG TAB PO PRN (02:00)
[2022-09-08] MEDS ORDERED: DEXTROSE (50%) 50ML SYRG IV PRN (02:00)
[2022-09-08] MEDS ORDERED: FUROSEMIDE 20 MG/2 ML VIAL IV ONE (02:00)
[2022-09-08] MEDS ORDERED: MORPHINE SULFATE INJ 2 MG/ml SYRG IV PRN (02:00)
[2022-09-08] MEDS: ALBUMIN 25% 100 ML IV SCH ×2 (03:28→04:21)
[2022-09-08 04:28] VITALS: BP 122/50
[2022-09-08 04:50] VITALS: BP 124/49
[2022-09-08 05:05] VITALS: BP 128/55
[2022-09-08] MEDS: SODIUM CHLOR 0.9% PF (SALINE LOCK) 10ML VIAL/SYR IV SCH ×3 (06:14→21:52)
[2022-09-08] MEDS: ACCU-CHEK COMFORT CURVE STRIP VI SCH ×4 (07:10→22:08)
[2022-09-08] MEDS: InsuLIN REG 1unit/0.01ml Soln (100units/ml) SC SCH ×4 (07:13→22:09)
[2022-09-08 08:41] VITALS: BP 127/58
[2022-09-08] MEDS ORDERED: FUROSEMIDE 40 MG/4 ML VIAL IV SCH (10:00)
[2022-09-08 11:08] LABS: Basophils # (auto) 0 10 ^3/uL (0-0.2); Hemoglobin 7.7 g/dL (13.5-17.5); Lymphocytes # (auto) 0.6 10 ^3/uL (0.4-5.4); Monocytes # (auto) 0.4 10 ^3/uL (0-1.3); Neutrophils # (auto) 6.8 10 ^3/uL (1.6-8.6)
[2022-09-08 11:10] LABS: Basophils % (auto) 0.2 % (0.0-2.0); Eosinophils # (auto) 0.2 10 ^3/uL (0-0.8); Eosinophils % (auto) 2.3 % (0.0-7.0); Hematocrit 22.2 % (41.0-53.0); Lymphocytes % (auto) 7.6 % (10.0-50.0); Mean Corpuscular Hemoglobin 31.7 pg (28.0-32.0); Mean Corpuscular Hgb Conc. 34.7 g/dL (32.0-36.0); Mean Corpuscular Volume 91.1 fL (80.0-100.0); Monocytes % (auto) 4.7 % (0.0-12.0); Neutrophils % (auto) 85.2 % (37.0-80.0); Red Blood Cells 2.43 10^6/uL (4.5-5.90)
[2022-09-08 11:13] LABS: Albumin 3.3 g/dL (3.4-5.0); Calcium 8.2 mg/dL (8.5-10.1); Potassium 4.1 mmol/L (3.5-5.1)
[2022-09-08 11:17] LABS: BUN/Creatinine Ratio 22.4 (10.0-20.0); Bilirubin, Total 1.2 mg/dL (0.2-1.0)
[2022-09-08] MEDS: CARVEDILOL 3.125 MG TAB PO SCH ×2 (11:56→22:00)
[2022-09-08] MEDS: ASPirin 81 mg TAB PO SCH (11:56)
[2022-09-08 12:41] LABS: % Iron Saturation 39.8 % (20-55)
[2022-09-08 17:23] LABS: Folate (Folic Acid) 18.65 ng/mL (5.38-24)
[2022-09-08] MEDS: FUROSEMIDE 100 MG/10ML VIAL IV SCH ×2 (18:00→18:31)
[2022-09-08 18:12] LABS: Chloride 111 mmol/L (98-107); Potassium 4.1 mmol/L (3.5-5.1); Sodium 141 mmol/L (136-145)
[2022-09-08 18:28] LABS: Anion Gap 5 (5-15); Blood Urea Nitrogen 27 mg/dL (7-18); Calcium 7.9 mg/dL (8.5-10.1); Carbon Dioxide 25 mmol/L (21-32); GFR African American 72 mL/min; GFR Non-African American 60 mL/min; Glucose 152 mg/dL (74-106)
[2022-09-08] MEDS: ATORVASTATIN 20 MG TAB PO SCH (22:15)
[2022-09-09] VITALS (34 sets, daily range): BP systolic 105–141; BP diastolic 30–62
[2022-09-09 04:49] LABS: Basophils # (auto) 0 10 ^3/uL (0-0.2); Basophils % (auto) 0.5 % (0.0-2.0); Eosinophils # (auto) 0.2 10 ^3/uL (0-0.8); Lymphocytes # (auto) 0.8 10 ^3/uL (0.4-5.4); Lymphocytes % (auto) 9.7 % (10.0-50.0); Mean Corpuscular Volume 92.6 fL (80.0-100.0); Neutrophils # (auto) 6.6 10 ^3/uL (1.6-8.6)
[2022-09-09 04:51] LABS: Eosinophils % (auto) 2.3 % (0.0-7.0); Hematocrit 22.5 % (41.0-53.0); Hemoglobin 7.7 g/dL (13.5-17.5); Mean Corpuscular Hemoglobin 31.8 pg (28.0-32.0); Mean Corpuscular Hgb Conc. 34.3 g/dL (32.0-36.0); Monocytes # (auto) 0.4 10 ^3/uL (0-1.3); Neutrophils % (auto) 82.5 % (37.0-80.0); Red Blood Cells 2.43 10^6/uL (4.5-5.90); Red Cell Distribution Width 16.7 % (11.8-14.3)
[2022-09-09 05:08] LABS: Potassium 3.8 mmol/L (3.5-5.1)
[2022-09-09 05:12] LABS: Albumin 2.9 g/dL (3.4-5.0); BUN/Creatinine Ratio 23.2 (10.0-20.0); Calcium 8.3 mg/dL (8.5-10.1)
[2022-09-09 05:15] LABS: Bilirubin, Total 0.8 mg/dL (0.2-1.0); Total Protein 5.9 g/dL (6.4-8.2)
[2022-09-09] MEDS: SODIUM CHLOR 0.9% PF (SALINE LOCK) 10ML VIAL/SYR IV SCH ×3 (05:58→21:12)
[2022-09-09] MEDS: FUROSEMIDE 100 MG/10ML VIAL IV SCH ×2 (06:00→17:59)
[2022-09-09] MEDS: InsuLIN REG 1unit/0.01ml Soln (100units/ml) SC SCH ×4 (07:00→21:11)
[2022-09-09] MEDS: ACCU-CHEK COMFORT CURVE STRIP VI SCH ×4 (07:06→21:11)
[2022-09-09] MEDS: ASPirin 81 mg TAB PO SCH (10:20)
[2022-09-09] MEDS: CARVEDILOL 3.125 MG TAB PO SCH ×2 (10:20→21:12)
[2022-09-09] MEDS: ATORVASTATIN 20 MG TAB PO SCH (21:11)
[2022-09-09 21:30] LABS: Basophils # (auto) 0 10 ^3/uL (0-0.2); Basophils % (auto) 0.5 % (0.0-2.0); Eosinophils # (auto) 0.2 10 ^3/uL (0-0.8); Eosinophils % (auto) 2.9 % (0.0-7.0); Hematocrit 27.3 % (41.0-53.0); Hemoglobin 9.2 g/dL (13.5-17.5); Lymphocytes # (auto) 0.8 10 ^3/uL (0.4-5.4); Lymphocytes % (auto) 9.9 % (10.0-50.0); Mean Corpuscular Hemoglobin 30.7 pg (28.0-32.0); Mean Corpuscular Hgb Conc. 33.7 g/dL (32.0-36.0); Mean Corpuscular Volume 91.2 fL (80.0-100.0); Monocytes # (auto) 0.5 10 ^3/uL (0-1.3); Neutrophils # (auto) 6.5 10 ^3/uL (1.6-8.6); Neutrophils % (auto) 80.7 % (37.0-80.0); Nucleated Red Blood Cells % 0.1 %; Red Blood Cells 2.99 10^6/uL (4.5-5.90); Red Cell Distribution Width 16.7 % (11.8-14.3); White Blood Cell 8.1 10^3/uL (4.4-10.8)
[2022-09-10] VITALS (26 sets, daily range): BP systolic 107–132; BP diastolic 36–64
[2022-09-10 04:19] LABS: Basophils # (auto) 0 10 ^3/uL (0-0.2); Basophils % (auto) 0.6 % (0.0-2.0); Eosinophils # (auto) 0.2 10 ^3/uL (0-0.8); Eosinophils % (auto) 3.2 % (0.0-7.0); Hematocrit 22.9 % (41.0-53.0); Hemoglobin 7.8 g/dL (13.5-17.5); Lymphocytes # (auto) 0.6 10 ^3/uL (0.4-5.4); Lymphocytes % (auto) 11.3 % (10.0-50.0); Mean Corpuscular Hemoglobin 31.4 pg (28.0-32.0); Mean Corpuscular Hgb Conc. 34.2 g/dL (32.0-36.0); Mean Corpuscular Volume 91.8 fL (80.0-100.0); Monocytes # (auto) 0.4 10 ^3/uL (0-1.3); Monocytes % (auto) 7.3 % (0.0-12.0); Neutrophils # (auto) 4.3 10 ^3/uL (1.6-8.6); Neutrophils % (auto) 77.6 % (37.0-80.0); Nucleated Red Blood Cells % 0.1 %; Red Cell Distribution Width 16.6 % (11.8-14.3); White Blood Cell 5.5 10^3/uL (4.4-10.8)
[2022-09-10 04:39] LABS: Calcium 8.1 mg/dL (8.5-10.1); Potassium 3.6 mmol/L (3.5-5.1)
[2022-09-10] MEDS: FUROSEMIDE 100 MG/10ML VIAL IV SCH ×2 (06:20→17:41)
[2022-09-10] MEDS: InsuLIN REG 1unit/0.01ml Soln (100units/ml) SC SCH ×4 (06:20→21:11)
[2022-09-10] MEDS: ACCU-CHEK COMFORT CURVE STRIP VI SCH ×4 (06:20→21:06)
[2022-09-10] MEDS: SODIUM CHLOR 0.9% PF (SALINE LOCK) 10ML VIAL/SYR IV SCH ×3 (06:25→21:12)
[2022-09-10] MEDS: CARVEDILOL 3.125 MG TAB PO SCH ×2 (10:13→21:06)
[2022-09-10] MEDS: ASPirin 81 mg TAB PO SCH (10:13)
[2022-09-10 11:16] LABS: Hematocrit 24.4 % (41.0-53.0); Hemoglobin 8.5 g/dL (13.5-17.5)
[2022-09-10 11:31] LABS: Bilirubin, Direct 0.2 mg/dL (0-0.2); Bilirubin, Total 0.8 mg/dL (0.2-1.0)
[2022-09-10] MEDS: ATORVASTATIN 20 MG TAB PO SCH (21:06)
[2022-09-11] VITALS (9 sets, daily range): BP systolic 96–125; BP diastolic 37–80
[2022-09-11 04:23] LABS: Basophils # (auto) 0 10 ^3/uL (0-0.2); Basophils % (auto) 0.5 % (0.0-2.0); Eosinophils # (auto) 0.2 10 ^3/uL (0-0.8); Eosinophils % (auto) 2.6 % (0.0-7.0); Hematocrit 26.1 % (41.0-53.0); Hemoglobin 8.7 g/dL (13.5-17.5); Lymphocytes # (auto) 0.8 10 ^3/uL (0.4-5.4); Lymphocytes % (auto) 13.5 % (10.0-50.0); Mean Corpuscular Hemoglobin 30.7 pg (28.0-32.0); Mean Corpuscular Hgb Conc. 33.5 g/dL (32.0-36.0); Mean Corpuscular Volume 91.7 fL (80.0-100.0); Monocytes # (auto) 0.4 10 ^3/uL (0-1.3); Monocytes % (auto) 7.8 % (0.0-12.0); Neutrophils # (auto) 4.4 10 ^3/uL (1.6-8.6); Neutrophils % (auto) 75.6 % (37.0-80.0); Nucleated Red Blood Cells % 0.1 %; Red Blood Cells 2.84 10^6/uL (4.5-5.90); White Blood Cell 5.8 10^3/uL (4.4-10.8)
[2022-09-11] MEDS: SODIUM CHLOR 0.9% PF (SALINE LOCK) 10ML VIAL/SYR IV SCH (06:23)
[2022-09-11] MEDS: FUROSEMIDE 100 MG/10ML VIAL IV SCH (06:23)
[2022-09-11] MEDS: ACCU-CHEK COMFORT CURVE STRIP VI SCH (06:23)
[2022-09-11] MEDS: InsuLIN REG 1unit/0.01ml Soln (100units/ml) SC SCH (06:25)
[2022-09-11] MEDS: CARVEDILOL 3.125 MG TAB PO SCH (08:00)
[2022-09-11] MEDS: ASPirin 81 mg TAB PO SCH (08:01)
[2022-09-11] MEDS ORDERED: LOS25T PO (09:40)
[2022-09-11] MEDS ORDERED: FURO1TAB31 PO (09:40)
[2022-09-11] MEDS ORDERED: CAR3125T PO (09:40)
== END 2022-09-11 09:22 | disposition left against medical advice (07) | DRG 306 ==
LOC: EDBD 21:30 → ER 21:30 → TELE 09-08 01:59 → ICU WEST 09-09 08:00
PROVIDERS: ADMIT Nurse Practitioner Family; ATTEND Internal Medicine
PROC: 30233N1 Transfusion of Nonautologous Red Blood Cells into Peripheral Vein, Percutaneous Approach (ICD-10-PCS; principal; 2022-09-08)
DX: T82.03XA Leakage of heart valve prosthesis, initial encounter (principal); I50.43 Acute on chronic combined systolic (congestive) and diastolic (congestive) heart failure; I13.0 Hypertensive heart and chronic kidney disease with heart failure and stage 1 through stage 4 chronic kidney disease, or unspecified chronic kidney disease; J98.11 Atelectasis; Z20.822 Contact with and (suspected) exposure to COVID-19; D64.9 Anemia, unspecified; E11.22 Type 2 diabetes mellitus with diabetic chronic kidney disease; E11.51 Type 2 diabetes mellitus with diabetic peripheral angiopathy without gangrene; E78.5 Hyperlipidemia, unspecified; E83.51 Hypocalcemia; E86.0 Dehydration; E88.09 Other disorders of plasma-protein metabolism, not elsewhere classified; I08.0 Rheumatic disorders of both mitral and aortic valves; I25.10 Atherosclerotic heart disease of native coronary artery without angina pectoris; I48.91 Unspecified atrial fibrillation; N18.9 Chronic kidney disease, unspecified; Z95.0 Presence of cardiac pacemaker; Z95.2 Presence of prosthetic heart valve; Z79.82 Long term (current) use of aspirin; Z79.02 Long term (current) use of antithrombotics/antiplatelets
CPT/HCPCS: 36415; 71045; 80048; 80053; 81001; 82247; 82248; 82607; 82746; 82962; 83010; 83036; 83540; 83550; 83605; 83615; 83735; 83880; 84484; 85014; 85018; 85025; 85045; 85384; 85610; 85730; 86850; 86880; 86900; 86901; 86920; 87081; 87426; 93005; 93306; 96365; 96375; 96376; 99291; G0378; J1815; J2405; P9047

== ENCOUNTER 2022-09-26 14:44 | Inpatient (IN) | payer OTHER ==
[~2022-09-26] VITALS: Ht 175.3 cm; Wt 62.9 kg
[~2022-09-26 14:44] MED LIST changes: +CAR3125T PO; -CILO100T PO; +FURO1TAB31 PO; +LOS25T PO
[2022-09-26 15:18] LABS: Basophils % (auto) 0.9 % (0.0-2.0); Eosinophils # (auto) 0.1 10 ^3/uL (0-0.8); Monocytes # (auto) 0.3 10 ^3/uL (0-1.3); Neutrophils # (auto) 4.5 10 ^3/uL (1.6-8.6)
[2022-09-26 15:20] LABS: Basophils # (auto) 0 10 ^3/uL (0-0.2); Eosinophils % (auto) 2.6 % (0.0-7.0); Hematocrit 18.4 % (41.0-53.0); Lymphocytes # (auto) 0.7 10 ^3/uL (0.4-5.4); Lymphocytes % (auto) 12.8 % (10.0-50.0); Mean Corpuscular Hemoglobin 30.4 pg (28.0-32.0); Mean Corpuscular Hgb Conc. 32.6 g/dL (32.0-36.0); Mean Corpuscular Volume 93.3 fL (80.0-100.0); Neutrophils % (auto) 78.7 % (37.0-80.0); Red Blood Cells 1.98 10^6/uL (4.5-5.90); White Blood Cell 5.7 10^3/uL (4.4-10.8)
[2022-09-26 15:32] LABS: INR 1.02 (0.9-1.15); Partial Thromboplastin Time 25.9 sec (24.6-33.4)
[2022-09-26] MEDS ORDERED: ENOXAPARIN SOD 60 MG/0.6 ML SYRINGE SC ONE (16:00)
[2022-09-26 16:18] LABS: Calcium 8.4 mg/dL (8.5-10.1); Potassium 4.3 mmol/L (3.5-5.1)
[2022-09-26 16:22] LABS: BUN/Creatinine Ratio 32.1 (10.0-20.0); Bilirubin, Total 0.5 mg/dL (0.2-1.0); Total Protein 5.9 g/dL (6.4-8.2)
[2022-09-26] MEDS ORDERED: NITROGLYCERIN 0.4 MG SL TAB SL ONE ×2 (18:31→19:30)
[2022-09-26] MEDS ORDERED: PANTOPRAZOLE 40 MG/10 ML VIAL INJ IV ONE (19:45)
[2022-09-26 19:57] VITALS: BP 123/56
[2022-09-26] MEDS ORDERED: ACETAMINOPHEN 325 MG TAB PO PRN (20:00)
[2022-09-26] MEDS ORDERED: MORPHINE SULFATE INJ 2 MG/ml SYRG IV PRN (20:00)
[2022-09-26] MEDS ORDERED: NITROGLYCERIN 0.4 MG SL TAB SL PRN (20:00)
[2022-09-26] MEDS ORDERED: FUROSEMIDE 20 MG/2 ML VIAL IV ONE (20:00)
[2022-09-26 20:01] VITALS: BP 112/44
[2022-09-26] MEDS ORDERED: DEXTROSE (50%) 50ML SYRG IV PRN (20:15)
[2022-09-26 20:16] VITALS: BP 107/51
[2022-09-26 20:31] LABS: Cholesterol 112 mg/dL (< 200)
[2022-09-26 20:35] LABS: HDL Cholesterol 38 mg/dL (40-59); LDL Cholesterol 61 mg/dL (< 100); Triglycerides 93 mg/dL (< 150)
[2022-09-26 20:46] LABS: Folate (Folic Acid) 13.86 ng/mL (5.38-24)
[2022-09-26] MEDS: RANOLAZINE ER 500 MG TAB PO SCH (21:50)
[2022-09-26] MEDS: CARVEDILOL 3.125 MG TAB PO SCH (21:50)
[2022-09-26] MEDS: ACCU-CHEK COMFORT CURVE STRIP VI SCH (21:51)
[2022-09-26] MEDS: InsuLIN REG 1unit/0.01ml Soln (100units/ml) SC SCH (21:52)
[2022-09-26] MEDS ORDERED: ZOLPIDEM TARTRATE 5 MG TAB PO PRN (22:00)
[2022-09-26] MEDS ORDERED: ATORVASTATIN 20 MG TAB PO SCH (22:00)
[2022-09-26 22:01] VITALS: BP 119/31
[2022-09-26 23:00] VITALS: BP 114/51
[2022-09-26 23:10] VITALS: BP 128/50
[2022-09-27] VITALS (7 sets, daily range): BP systolic 98–115; BP diastolic 37–46
[2022-09-27 00:53] LABS: Basophils # (auto) 0 10 ^3/uL (0-0.2); Basophils % (auto) 0.7 % (0.0-2.0); Eosinophils # (auto) 0.1 10 ^3/uL (0-0.8); Lymphocytes # (auto) 0.8 10 ^3/uL (0.4-5.4); Monocytes # (auto) 0.3 10 ^3/uL (0-1.3)
[2022-09-27 00:54] LABS: Eosinophils % (auto) 1.6 % (0.0-7.0); Hematocrit 20.1 % (41.0-53.0); Lymphocytes % (auto) 14.5 % (10.0-50.0); Mean Corpuscular Hemoglobin 32.2 pg (28.0-32.0); Mean Corpuscular Volume 94.7 fL (80.0-100.0); Neutrophils # (auto) 4.3 10 ^3/uL (1.6-8.6); Neutrophils % (auto) 77.2 % (37.0-80.0); Nucleated Red Blood Cells % 0.1 %; Red Blood Cells 2.12 10^6/uL (4.5-5.90); Red Cell Distribution Width 17.4 % (11.8-14.3); White Blood Cell 5.6 10^3/uL (4.4-10.8)
[2022-09-27 01:17] LABS: Hemoglobin 6.8 g/dL (13.5-17.5)
[2022-09-27] MEDS ORDERED: FUROSEMIDE 40 MG TAB PO SCH (06:00)
[2022-09-27 06:04] LABS: Basophils # (auto) 0 10 ^3/uL (0-0.2); Basophils % (auto) 0.7 % (0.0-2.0); Eosinophils # (auto) 0.1 10 ^3/uL (0-0.8); Lymphocytes # (auto) 0.8 10 ^3/uL (0.4-5.4); Monocytes # (auto) 0.3 10 ^3/uL (0-1.3); Neutrophils # (auto) 3.5 10 ^3/uL (1.6-8.6)
[2022-09-27 06:06] LABS: Eosinophils % (auto) 2.6 % (0.0-7.0); Hematocrit 21.5 % (41.0-53.0); Hemoglobin 7.3 g/dL (13.5-17.5); Lymphocytes % (auto) 16.1 % (10.0-50.0); Mean Corpuscular Hemoglobin 30.6 pg (28.0-32.0); Mean Corpuscular Hgb Conc. 34.2 g/dL (32.0-36.0); Mean Corpuscular Volume 89.4 fL (80.0-100.0); Monocytes % (auto) 6.4 % (0.0-12.0); Neutrophils % (auto) 74.2 % (37.0-80.0); Nucleated Red Blood Cells % 0.1 %; Red Cell Distribution Width 16.6 % (11.8-14.3); White Blood Cell 4.8 10^3/uL (4.4-10.8)
[2022-09-27 06:30] LABS: Calcium 8.3 mg/dL (8.5-10.1); Potassium 3.7 mmol/L (3.5-5.1)
[2022-09-27 06:36] LABS: Albumin 2.8 g/dL (3.4-5.0); BUN/Creatinine Ratio 33.6 (10.0-20.0); Bilirubin, Total 0.8 mg/dL (0.2-1.0); Total Protein 5.7 g/dL (6.4-8.2)
[2022-09-27] MEDS: ACCU-CHEK COMFORT CURVE STRIP VI SCH ×2 (06:46→12:00)
[2022-09-27] MEDS: InsuLIN REG 1unit/0.01ml Soln (100units/ml) SC SCH ×2 (06:47→11:59)
[2022-09-27 08:20] LABS: Basophils # (auto) 0 10 ^3/uL (0-0.2); Eosinophils # (auto) 0.2 10 ^3/uL (0-0.8); Hematocrit 21.8 % (41.0-53.0); Lymphocytes # (auto) 0.8 10 ^3/uL (0.4-5.4); Monocytes # (auto) 0.4 10 ^3/uL (0-1.3)
[2022-09-27 08:23] LABS: Basophils % (auto) 0.5 % (0.0-2.0); Hemoglobin 7.6 g/dL (13.5-17.5); Lymphocytes % (auto) 14.7 % (10.0-50.0); Mean Corpuscular Hemoglobin 31.4 pg (28.0-32.0); Mean Corpuscular Volume 89.9 fL (80.0-100.0); Monocytes % (auto) 7.4 % (0.0-12.0); Neutrophils # (auto) 3.9 10 ^3/uL (1.6-8.6); Neutrophils % (auto) 74.4 % (37.0-80.0); Red Blood Cells 2.43 10^6/uL (4.5-5.90); Red Cell Distribution Width 16.7 % (11.8-14.3); White Blood Cell 5.3 10^3/uL (4.4-10.8)
[2022-09-27] MEDS ORDERED: PANTOPRAZOLE 40 MG/10 ML VIAL INJ IV SCH (10:00)
[2022-09-27] MEDS ORDERED: LOSARTAN POTASSIUM 25 MG TAB PO SCH (10:00)
[2022-09-27] MEDS ORDERED: FUROSEMIDE 20 MG/2 ML VIAL IV SCH (10:00)
[2022-09-27] MEDS: RANOLAZINE ER 500 MG TAB PO SCH (10:31)
[2022-09-27] MEDS: CARVEDILOL 3.125 MG TAB PO SCH (10:32)
[2022-09-27] MEDS ORDERED: DOCUSATE SOD 100 MG CAP PO PRN (12:15)
[2022-09-27 12:27] LABS: Basophils # (auto) 0 10 ^3/uL (0-0.2); Eosinophils # (auto) 0.1 10 ^3/uL (0-0.8); Lymphocytes # (auto) 0.6 10 ^3/uL (0.4-5.4); Monocytes # (auto) 0.4 10 ^3/uL (0-1.3); Neutrophils # (auto) 4.4 10 ^3/uL (1.6-8.6)
[2022-09-27 12:29] LABS: Basophils % (auto) 0.5 % (0.0-2.0); Eosinophils % (auto) 2.4 % (0.0-7.0); Hematocrit 21.8 % (41.0-53.0); Hemoglobin 7.3 g/dL (13.5-17.5); Mean Corpuscular Hemoglobin 30.2 pg (28.0-32.0); Mean Corpuscular Hgb Conc. 33.6 g/dL (32.0-36.0); Mean Corpuscular Volume 89.8 fL (80.0-100.0); Monocytes % (auto) 6.3 % (0.0-12.0); Neutrophils % (auto) 79.8 % (37.0-80.0); Nucleated Red Blood Cells % 0.2 %; Red Blood Cells 2.42 10^6/uL (4.5-5.90); White Blood Cell 5.5 10^3/uL (4.4-10.8)
[2022-09-27] MEDS ORDERED: FERR-7 PO (14:23)
[2022-09-27] MEDS ORDERED: ASCO500T11 PO (14:23)
[2022-09-27] MEDS ORDERED: ASPirin-EC 81 mg tab PO SCH (18:00)
[2022-09-27] MEDS ORDERED: METOPROLOL TARTRATE 25 MG TAB PO SCH (18:00)
== END 2022-09-27 15:01 | disposition home or self-care (01) | DRG 811 ==
LOC: ER 14:44 → TELE 19:52
PROVIDERS: ADMIT Nurse Practitioner Family; ATTEND Hospitalist
PROC: 30233N1 Transfusion of Nonautologous Red Blood Cells into Peripheral Vein, Percutaneous Approach (ICD-10-PCS; principal; 2022-09-26)
DX: D64.9 Anemia, unspecified (principal); I50.43 Acute on chronic combined systolic (congestive) and diastolic (congestive) heart failure; I13.0 Hypertensive heart and chronic kidney disease with heart failure and stage 1 through stage 4 chronic kidney disease, or unspecified chronic kidney disease; J98.11 Atelectasis; E11.22 Type 2 diabetes mellitus with diabetic chronic kidney disease; E78.5 Hyperlipidemia, unspecified; I25.10 Atherosclerotic heart disease of native coronary artery without angina pectoris; N18.9 Chronic kidney disease, unspecified; E11.51 Type 2 diabetes mellitus with diabetic peripheral angiopathy without gangrene; I34.0 Nonrheumatic mitral (valve) insufficiency; I48.91 Unspecified atrial fibrillation; Z95.0 Presence of cardiac pacemaker; Z95.2 Presence of prosthetic heart valve; Z83.3 Family history of diabetes mellitus; Z82.49 Family history of ischemic heart disease and other diseases of the circulatory system
CPT/HCPCS: 36415; 71045; 78582; 80053; 80061; 82607; 82746; 82962; 83540; 83550; 83880; 84443; 84484; 85025; 85379; 85610; 85730; 86850; 86900; 86901; 86920; 93005; 93971; 99291; C9113; G0378; J1815

== ENCOUNTER 2022-11-01 11:49 | Inpatient (IN) | payer OTHER ==
[~2022-11-01] VITALS: Ht 172.7 cm; Wt 64.9 kg
[~2022-11-01 11:49] MED LIST changes: +ASCO500T11 PO; +FERR-7 PO
[2022-11-01 12:28] LABS: Basophils # (auto) 0 10 ^3/uL (0-0.2); Eosinophils # (auto) 0.2 10 ^3/uL (0-0.8); Eosinophils % (auto) 3.3 % (0.0-7.0); Hematocrit 26.9 % (41.0-53.0); Hemoglobin 8.9 g/dL (13.5-17.5); Lymphocytes # (auto) 0.8 10 ^3/uL (0.4-5.4); Lymphocytes % (auto) 16.3 % (10.0-50.0); Mean Corpuscular Hemoglobin 31.1 pg (28.0-32.0); Mean Corpuscular Hgb Conc. 33.2 g/dL (32.0-36.0); Mean Corpuscular Volume 93.6 fL (80.0-100.0); Monocytes # (auto) 0.4 10 ^3/uL (0-1.3); Monocytes % (auto) 8.7 % (0.0-12.0); Neutrophils # (auto) 3.5 10 ^3/uL (1.6-8.6); Neutrophils % (auto) 70.7 % (37.0-80.0); Red Blood Cells 2.87 10^6/uL (4.5-5.90); Red Cell Distribution Width 18.9 % (11.8-14.3)
[2022-11-01 12:45] LABS: Albumin 3.5 g/dL (3.4-5.0); Calcium 8.1 mg/dL (8.5-10.1); Potassium 4.3 mmol/L (3.5-5.1)
[2022-11-01 12:51] LABS: BUN/Creatinine Ratio 15.8 (10.0-20.0); Bilirubin, Total 0.4 mg/dL (0.2-1.0); Magnesium 2.4 mg/dL (1.6-2.6); Total Protein 6.6 g/dL (6.4-8.2)
[2022-11-01] MEDS ORDERED: PIPERACILLIN-TAZOB 3.375GM 100 ML IV ONE (13:00)
[2022-11-01] MEDS ORDERED: FUROSEMIDE 40 MG/4 ML VIAL IV ONE (13:00)
[2022-11-01] MEDS ORDERED: IOHEXOL 350 MG/ML 100ML IJ ONE (13:09)
[2022-11-01] MEDS ORDERED: DOCUSATE SOD 100 MG CAP PO PRN (15:30)
[2022-11-01] MEDS ORDERED: MORPHINE SULFATE INJ 2 MG/ml SYRG IV PRN (15:30)
[2022-11-01] MEDS ORDERED: HYDROcodone-ACET 5/325MG TAB PO PRN (15:30)
[2022-11-01] MEDS ORDERED: ACETAMINOPHEN 325 MG TAB PO PRN (15:30)
[2022-11-01] MEDS ORDERED: NITROGLYCERIN 0.4 MG SL TAB SL PRN ×2 (15:30→17:00)
[2022-11-01 16:46] LABS: INR 1.01 (0.9-1.15); Partial Thromboplastin Time 29.3 sec (24.6-33.4)
[2022-11-01] MEDS: FUROSEMIDE 40 MG/4 ML VIAL IV SCH (18:00)
[2022-11-01] MEDS: RANOLAZINE ER 500 MG TAB PO SCH (22:19)
[2022-11-01] MEDS: POTASSIUM CHL 20 Meq TABLET PO SCH (22:19)
[2022-11-01 23:06] VITALS: BP 142/58
[2022-11-02] VITALS (8 sets, daily range): BP systolic 127–142; BP diastolic 47–65
[2022-11-02] MEDS ORDERED: DEXTROSE (50%) 50ML SYRG IV PRN (05:00)
[2022-11-02] MEDS: FUROSEMIDE 40 MG/4 ML VIAL IV SCH ×2 (05:34→19:35)
[2022-11-02] MEDS: ACCU-CHEK COMFORT CURVE STRIP VI SCH ×4 (05:45→22:16)
[2022-11-02] MEDS: InsuLIN REG 1unit/0.01ml Soln (100units/ml) SC SCH ×4 (05:45→22:18)
[2022-11-02] MEDS: RANOLAZINE ER 500 MG TAB PO SCH ×2 (10:16→21:57)
[2022-11-02] MEDS: POTASSIUM CHL 20 Meq TABLET PO SCH ×2 (10:17→21:57)
[2022-11-02 22:51] LABS: Urine Bacteria NONE SEEN /hpf (None Seen); Urine Blood Negative /uL (Negative); Urine Specific Gravity 1.009 (1.001-1.035); Urine WBC <1 /hpf (0 - 3)
[2022-11-03 05:31] VITALS: BP 113/42
[2022-11-03] MEDS: FUROSEMIDE 40 MG/4 ML VIAL IV SCH ×2 (06:21→17:46)
[2022-11-03] MEDS: ACCU-CHEK COMFORT CURVE STRIP VI SCH ×3 (06:25→17:09)
[2022-11-03] MEDS: InsuLIN REG 1unit/0.01ml Soln (100units/ml) SC SCH ×3 (06:25→17:00)
[2022-11-03 08:00] VITALS: BP 117/50
[2022-11-03 09:00] VITALS: BP 117/50
[2022-11-03] MEDS: POTASSIUM CHL 20 Meq TABLET PO SCH (09:37)
[2022-11-03] MEDS: RANOLAZINE ER 500 MG TAB PO SCH (09:37)
[2022-11-03 13:00] VITALS: BP 128/42
[2022-11-03 16:14] VITALS: BP 117/46
[2022-11-03] MEDS ORDERED: CLOP75TA70 PO (17:02)
[2022-11-03 17:26] VITALS: BP 128/42
== END 2022-11-03 18:10 | disposition home or self-care (01) | DRG 291 ==
LOC: ER 11:49 → TELE 15:34 → TELE-WESTW 23:08
PROVIDERS: ADMIT Internal Medicine; ATTEND Internal Medicine
PROC: 0W993ZZ Drainage of Right Pleural Cavity, Percutaneous Approach (ICD-10-PCS; principal; 2022-11-02)
PROC: 0W9B3ZZ Drainage of Left Pleural Cavity, Percutaneous Approach (ICD-10-PCS; 2022-11-03)
DX: I11.0 Hypertensive heart disease with heart failure (principal); I50.23 Acute on chronic systolic (congestive) heart failure; J18.9 Pneumonia, unspecified organism; I48.92 Unspecified atrial flutter; J91.8 Pleural effusion in other conditions classified elsewhere; I25.10 Atherosclerotic heart disease of native coronary artery without angina pectoris; E78.5 Hyperlipidemia, unspecified; I48.0 Paroxysmal atrial fibrillation; I35.0 Nonrheumatic aortic (valve) stenosis; E11.51 Type 2 diabetes mellitus with diabetic peripheral angiopathy without gangrene; I25.2 Old myocardial infarction; Z82.49 Family history of ischemic heart disease and other diseases of the circulatory system; Z83.3 Family history of diabetes mellitus; Z90.49 Acquired absence of other specified parts of digestive tract; Z95.0 Presence of cardiac pacemaker; Z95.2 Presence of prosthetic heart valve; Z98.61 Coronary angioplasty status; D64.9 Anemia, unspecified
CPT/HCPCS: 36415; 71045; 71275; 76604; 76942; 80053; 81001; 82962; 83605; 83735; 83880; 83986; 84484; 85025; 85379; 85610; 85730; 86850; 86900; 86901; 87040; 87070; 87205; 89051; 93005; 96365; 96375; 99291; G0378; J1815; J2543

== ENCOUNTER 2023-07-01 15:40 | Inpatient (IN) | payer OTHER ==
[~2023-07-01] VITALS: Ht 177.8 cm; Wt 66.2 kg
[~2023-07-01 15:40] MED LIST changes: -ASPI1TAB19 PO; +CLOP75TA70 PO; -LISI2.5T47 PO; -METO25TA5 PO
[2023-07-01] MEDS ORDERED: dilTIAZem 25 MG/5 ML VIAL IV ONE (16:15)
[2023-07-01] MEDS ORDERED: SODIUM CHLORIDE 0.9% 500 ML IV ONE (16:15)
[2023-07-01 16:23] VITALS: PULSE 114; RESP 22; O2SAT 99
[2023-07-01] MEDS ORDERED: ASPirin 81 mg TAB PO ONE (16:45)
[2023-07-01] MEDS ORDERED: SODIUM CHLORIDE 0.9% 1,000 ML IV ONE (16:45)
[2023-07-01 17:28] LABS: Basophils # (auto) 0.1 10 ^3/uL (0-0.2); Basophils % (auto) 0.7 % (0.0-2.0); Eosinophils # (auto) 0.3 10 ^3/uL (0-0.8); Eosinophils % (auto) 3.3 % (0.0-7.0); Hematocrit 41.2 % (41.0-53.0); Hemoglobin 13.5 g/dL (13.5-17.5); Lymphocytes # (auto) 1.1 10 ^3/uL (0.4-5.4); Lymphocytes % (auto) 13.9 % (10.0-50.0); Mean Corpuscular Hgb Conc. 32.7 g/dL (32.0-36.0); Mean Corpuscular Volume 97.7 fL (80.0-100.0); Monocytes # (auto) 0.7 10 ^3/uL (0-1.3); Monocytes % (auto) 8.7 % (0.0-12.0); Neutrophils # (auto) 5.6 10 ^3/uL (1.6-8.6); Neutrophils % (auto) 73.4 % (37.0-80.0); Nucleated Red Blood Cells % 0.1 %; Red Blood Cells 4.22 10^6/uL (4.5-5.90); Red Cell Distribution Width 15.5 % (11.8-14.3); White Blood Cell 7.6 10^3/uL (4.4-10.8)
[2023-07-01 17:34] LABS: Alkaline Phosphatase 96 U/L (46-116)
[2023-07-01 17:35] LABS: Alanine Aminotransferase 10 U/L (7-40); Albumin 4.7 g/dL (3.2-4.8); Anion Gap 9 (5-15); Aspartate Aminotransferase 13 U/L (13-40); BUN/Creatinine Ratio 17.4 (10.0-20.0); Bilirubin, Total 0.5 mg/dL (0.2-1.0); Blood Urea Nitrogen 26 mg/dL (9-23); Calcium 9.1 mg/dL (8.7-10.4); Carbon Dioxide 24 mmol/L (20-30); Chloride 107 mmol/L (98-107); Glucose 166 mg/dL (74-106); Potassium 4.4 mmol/L (3.5-5.1); Sodium 140 mmol/L (136-145); Total Protein 7.4 g/dL (5.7-8.2)
[2023-07-01 18:19] LABS: Partial Thromboplastin Time 31.6 SEC (24.5-34.5); Prothrombin Time 10.5 sec (9.3-11.8)
[2023-07-01] MEDS ORDERED: METOPROLOL TARTRATE 1MG/1ML-5ML VIAL IV PRN (19:15)
[2023-07-01] MEDS ORDERED: NITROGLYCERIN 0.4 MG SL TAB SL PRN ×2 (19:15→20:00)
[2023-07-01] MEDS ORDERED: PROMETHAZINE HCL 25 MG/ML 1ML IV PRN (19:15)
[2023-07-01] MEDS ORDERED: MORPHINE SULFATE INJ 2 MG/ml SYRG IV PRN ×3 (19:15)
[2023-07-01 19:25] VITALS: PULSE 130; RESP 21; O2SAT 97
[2023-07-01] MEDS ORDERED: AMIODARONE BOLUS KIT 100 ML IV ONE (19:45)
[2023-07-01] MEDS ORDERED: AMIODARONE 450mg/250ml AE 250 ML IV SCH (20:00)
[2023-07-01] MEDS ORDERED: ENOXAPARIN SOD 100 MG/1 ML SYRINGE SC SCH (20:00)
[2023-07-01] MEDS: CARVEDILOL 3.125 MG TAB PO SCH (22:00)
[2023-07-01] MEDS: FUROSEMIDE 40 MG TAB PO SCH (22:48)
[2023-07-01] MEDS: RANOLAZINE ER 500 MG TAB PO SCH (22:48)
[2023-07-01] MEDS: ATORVASTATIN 20 MG TAB PO SCH (22:48)
[2023-07-01 23:19] LABS: Urine Bacteria NONE SEEN /hpf (None Seen); Urine Blood TRACE /uL (Negative); Urine Clarity Clear (Clear); Urine Color Colorless (Yellow); Urine Protein, UAD Negative (Negative); Urine Specific Gravity 1.009 (1.001-1.035); Urine Urobilinogen Normal (Negative); Urine WBC <1 /hpf (0 - 3)
[2023-07-01 23:46] LABS: COVID19 ANTIGEN SOFIA FIA NEGATIVE (NEGATIVE); Rapid Influenza A Negative (Negative); Rapid Influenza B Negative (Negative)
[2023-07-02] MEDS ORDERED: AMIODARONE 450mg/250ml AE 250 ML IV SCH (02:00)
[2023-07-02 05:47] LABS: Basophils # (auto) 0 10 ^3/uL (0-0.2); Basophils % (auto) 0.3 % (0.0-2.0); Eosinophils # (auto) 0.1 10 ^3/uL (0-0.8); Eosinophils % (auto) 1.1 % (0.0-7.0); Hematocrit 32.4 % (41.0-53.0); Hemoglobin 10.9 g/dL (13.5-17.5); Lymphocytes # (auto) 0.6 10 ^3/uL (0.4-5.4); Lymphocytes % (auto) 8.9 % (10.0-50.0); Mean Corpuscular Hemoglobin 32.3 pg (28.0-32.0); Mean Corpuscular Hgb Conc. 33.6 g/dL (32.0-36.0); Monocytes # (auto) 0.7 10 ^3/uL (0-1.3); Monocytes % (auto) 9.5 % (0.0-12.0); Neutrophils # (auto) 5.6 10 ^3/uL (1.6-8.6); Neutrophils % (auto) 80.2 % (37.0-80.0); Red Blood Cells 3.38 10^6/uL (4.5-5.90); White Blood Cell 6.9 10^3/uL (4.4-10.8)
[2023-07-02 06:00] LABS: Chloride 107 mmol/L (98-107); Sodium 141 mmol/L (136-145)
[2023-07-02 06:01] LABS: Anion Gap 7 (5-15); Calcium 8.8 mg/dL (8.5-10.1); Carbon Dioxide 27 mmol/L (20-30)
[2023-07-02 06:06] LABS: BUN/Creatinine Ratio 14.2 (10.0-20.0); Blood Urea Nitrogen 22 mg/dL (9-23); Glucose 157 mg/dL (74-106)
[2023-07-02] MEDS: INSULIN LANTUS (GLARGINE) 1 /0.01ml (100units/ml) SC SCH (06:59)
[2023-07-02 07:17] LABS: LDL Cholesterol 139 mg/dL (< 100); Triglycerides 103 mg/dL (< 150)
[2023-07-02 07:19] LABS: Cholesterol 191 mg/dL (< 200); HDL Cholesterol 35 mg/dL (40-59)
[2023-07-02 07:30] VITALS: PULSE 66; RESP 17; O2SAT 100
[2023-07-02] MEDS ORDERED: LOSARTAN POTASSIUM 25 MG TAB PO SCH (10:00)
[2023-07-02] MEDS ORDERED: ASCORBIC ACID 500 MG TAB PO SCH (10:00)
[2023-07-02] MEDS: AMIODARONE HCL 200 MG TAB PO SCH ×2 (10:55→22:02)
[2023-07-02] MEDS: ENOXAPARIN SOD 40 MG/0.4 ML SYRINGE SC SCH (10:55)
[2023-07-02] MEDS: cefTRIAXone 1GM/50ML D5W 50 ML IV SCH (10:55)
[2023-07-02] MEDS: RANOLAZINE ER 500 MG TAB PO SCH ×2 (10:55→22:01)
[2023-07-02] MEDS: ASPirin 81 mg TAB PO SCH (10:55)
[2023-07-02] MEDS: CLOPIDOGREL BISULFATE 75 MG TAB PO SCH (10:56)
[2023-07-02] MEDS: FUROSEMIDE 40 MG TAB PO SCH ×2 (10:57→22:02)
[2023-07-02] MEDS: CARVEDILOL 3.125 MG TAB PO SCH ×2 (10:57→22:01)
[2023-07-02] MEDS: ATORVASTATIN 20 MG TAB PO SCH (22:01)
[2023-07-03 01:31] VITALS: BP 154/56; PULSE 75; RESP 18; TEMP 97.8; O2SAT 96
[2023-07-03] MEDS ORDERED: dilTIAZem 25 MG/5 ML VIAL IV ONE (04:45)
[2023-07-03 05:00] VITALS: BP 101/53; PULSE 110; RESP 20; TEMP 97.8; O2SAT 97
[2023-07-03] MEDS: INSULIN LANTUS (GLARGINE) 1 /0.01ml (100units/ml) SC SCH (06:19)
[2023-07-03 06:31] LABS: Anion Gap 11 (5-15); Carbon Dioxide 25 mmol/L (20-30); Chloride 103 mmol/L (98-107); Potassium 3.8 mmol/L (3.5-5.1); Sodium 139 mmol/L (136-145)
[2023-07-03 06:33] LABS: Calcium 9.5 mg/dL (8.5-10.1)
[2023-07-03 06:37] LABS: BUN/Creatinine Ratio 14.8 (10.0-20.0); Blood Urea Nitrogen 27 mg/dL (9-23); Glucose 121 mg/dL (74-106)
[2023-07-03 08:00] VITALS: BP 106/56; PULSE 110; PULSE 113; RESP 20; O2SAT 98
[2023-07-03] MEDS: ENOXAPARIN SOD 40 MG/0.4 ML SYRINGE SC SCH (09:32)
[2023-07-03] MEDS: ASPirin 81 mg TAB PO SCH (09:33)
[2023-07-03] MEDS: AMIODARONE HCL 200 MG TAB PO SCH (09:33)
[2023-07-03] MEDS: CLOPIDOGREL BISULFATE 75 MG TAB PO SCH (09:34)
[2023-07-03] MEDS: cefTRIAXone 1GM/50ML D5W 50 ML IV SCH (09:34)
[2023-07-03] MEDS: RANOLAZINE ER 500 MG TAB PO SCH (09:34)
[2023-07-03] MEDS: FUROSEMIDE 40 MG TAB PO SCH (09:36)
[2023-07-03] MEDS: CARVEDILOL 3.125 MG TAB PO SCH (09:39)
[2023-07-03 10:00] VITALS: BP 104/51; PULSE 87; RESP 17; TEMP 97.5; O2SAT 94
[2023-07-03] MEDS ORDERED: CARVEDILOL 3.125 MG TAB PO SCH (12:00)
[2023-07-03] MEDS ORDERED: APIX5TAB PO ×2 (12:13)
[2023-07-03] MEDS ORDERED: CARV6.2551 PO (12:13)
[2023-07-03] MEDS ORDERED: AMIO200T33 PO (12:13)
[2023-07-03] MEDS ORDERED: CLOP75TA70 PO (12:17)
[2023-07-03] MEDS ORDERED: ASPI1TAB20 PO (12:17)
[2023-07-03 13:00] VITALS: BP 99/53; PULSE 91; RESP 20; TEMP 97.1; O2SAT 93
[2023-07-03 14:19] VITALS: BP 112/51; PULSE 96; RESP 18; TEMP 98.6; O2SAT 96
[2023-07-04] MEDS ORDERED: ENOXAPARIN SOD 30 MG/0.3 ML SYRINGE SC SCH (10:00)
== END 2023-07-03 16:00 | disposition home or self-care (01) | DRG 280 ==
LOC: ER 15:40 → TELE 19:05 → TELE-WESTW 07-02 19:05
PROVIDERS: ADMIT Hospitalist; ATTEND Hospitalist
DX: I48.0 Paroxysmal atrial fibrillation (principal); I21.A1 Myocardial infarction type 2; I50.43 Acute on chronic combined systolic (congestive) and diastolic (congestive) heart failure; N18.6 End stage renal disease; I13.2 Hypertensive heart and chronic kidney disease with heart failure and with stage 5 chronic kidney disease, or end stage renal disease; N17.9 Acute kidney failure, unspecified; E11.51 Type 2 diabetes mellitus with diabetic peripheral angiopathy without gangrene; E11.22 Type 2 diabetes mellitus with diabetic chronic kidney disease; E78.5 Hyperlipidemia, unspecified; E03.9 Hypothyroidism, unspecified; Z20.822 Contact with and (suspected) exposure to COVID-19; I25.10 Atherosclerotic heart disease of native coronary artery without angina pectoris; Z98.61 Coronary angioplasty status; Z95.2 Presence of prosthetic heart valve; Z79.899 Other long term (current) drug therapy; Z95.1 Presence of aortocoronary bypass graft; Z95.0 Presence of cardiac pacemaker; Z79.02 Long term (current) use of antithrombotics/antiplatelets; Z82.49 Family history of ischemic heart disease and other diseases of the circulatory system; Z83.3 Family history of diabetes mellitus
CPT/HCPCS: 36415; 71045; 78582; 80048; 80053; 80061; 81001; 82962; 83036; 83735; 83880; 84436; 84443; 84480; 84484; 85025; 85379; 85610; 85730; 87081; 87426; 87804; 93005; 93306; 93970; 96361; 96374; 97110; 97116; 97163; 97530; G0378; J1815